=== PATIENT | female | born 1970 | race Two or more races ===

== ENCOUNTER 2017-09-02 12:08 | Emergency (ER) | payer MEDICAID ==
[~2017-09-02] VITALS: Ht 167.6 cm; Wt 106.0 kg
[2017-09-02 12:19] VITALS: BP 160/91
[2017-09-02] MEDS ORDERED: KETOROLAC 60MG/2ML VIAL IM ONE (13:15)
== END 2017-09-02 13:43 | disposition home or self-care (01) ==
LOC: ER 12:49
DX: R51 Headache (principal); H53.8 Other visual disturbances; M26.629 Arthralgia of temporomandibular joint, unspecified side; Z90.49 Acquired absence of other specified parts of digestive tract; Z90.710 Acquired absence of both cervix and uterus; Z98.890 Other specified postprocedural states
CPT/HCPCS: 81025; 82962; 96372; 99283; J1885; Z7610